=== PATIENT | male | born 1965 | race Caucasian/White ===

== ENCOUNTER 2021-05-31 04:46 | Day surgery (SDC) | payer OTHER ==
[2021-05-30 12:35] VITALS: BMI 31.4
[2021-05-31 09:14] VITALS: TEMP 98.6
[2021-05-31 10:32] VITALS: BP 137/74; PULSE 654
== END 2021-05-31 10:00 | disposition home or self-care (01) ==
LOC: JASU-ENDO 04:46
PROVIDERS: ATTEND Internal Medicine Gastroenterology
PROC: 0DBP8ZX Excision of Rectum, Via Natural or Artificial Opening Endoscopic, Diagnostic (ICD-10-PCS; 2021-05-31)
PROC: 0DBK8ZX Excision of Ascending Colon, Via Natural or Artificial Opening Endoscopic, Diagnostic (ICD-10-PCS; principal; 2021-05-31 09:00)
DX: Z12.11 Encounter for screening for malignant neoplasm of colon (principal); D12.2 Benign neoplasm of ascending colon; D12.8 Benign neoplasm of rectum